=== PATIENT | male | born 1975 | race Caucasian/White ===

== ENCOUNTER 2024-03-02 10:20 | Emergency (ER) | payer OTHER, MEDICAID, SELFPAY ==
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
--- NOTE | ~2024-03-02 | XR_ITS ---
XR chest 1V portable Ordering provider: Jamel Lepe MD History: 48 years Male with . cough . Comparison: March 02, 2024 FINDINGS: MEDIASTINUM: The cardiac silhouette is not enlarged. LUNGS: No infiltrates, effusions or pneumothorax. OTHER: No free air under the diaphragm. Degenerative changes of the spine. IMPRESSION: No acute cardiopulmonary pathology. Reviewed, dictated and finalized at location A.
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
--- NOTE | ~2024-03-02 | XR_ITS ---
XR foot LT min 3V Ordering provider: Jamel Lepe MD History: . Diabetic foot . Comparison: None. FINDINGS: BONES: Status post amputation of the big toe. o fractures seen. Periosteal reaction is seen in the proximal phalanx of the second toe which may be due to previous in fection or trauma. Plantar subluxation of the navicular and medial cuneiform is not excluded. JOINT SPACES: Sclerotic changes seen in the navicular bone which may be inflammatory or osteoarthriti c. SOFT TISSUES: Postoperative changes seen medially Calcaneal spur. IMPRESSION: Status post amputation of the big toe. Plantar subluxation of the navicular and medial cuneiform bone. Sclerotic changes in the area of the talonavicular joint may be inflammatory or osteoarthritic change s. Reviewed, dictated and finalized at location A. IMPRESSION: Status post amputation of the big toe. Plantar subluxation of the navicular and medial cuneiform bone. Sclerotic changes in the area of the talonavicular joint may be inflammatory or osteoarthritic changes.
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
[2024-03-02 10:25] VITALS: BP 140/80; PULSE 93; RESP 14; TEMP 37; O2SAT 97
[2024-03-02 10:37] LABS: Glucose Point of Care > 500 mg/dl (65-105)
[2024-03-02 12:27] VITALS: BP 162/93; PULSE 74; RESP 16; O2SAT 95
[2024-03-02] MEDS: fentaNYL CITRATE INJ (*CRX) 100 MCG/2 ML VIAL 50 MCG IM (12:53)
[2024-03-02] MEDS: CYCLOBENZAPRINE HCL 10 MG TABLET PO (12:53)
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
[2024-03-02 13:12] LABS: Alveolar/Arterial O2 Gradient 33.7 mmHg; Base Excess ABG 2.2 mEq/l (+/-2.0); Fractional Inspired Oxygen 21 %; HCO3 ABG 27.7 mEq/l (22.0-26.0); Oxygen Content ABG 14.1 %vol (16.0-22.0); Oxygen Saturation ABG 90.4 % (95.0-100.0); PO2 ABG 59.7 mmHg (80.0-100.0); PO2 FiO2 Ratio Arterial Blood 2.84 %; Total Hemoglobin 11.7 g/dL (12.0-18.0); pH ABG 7.389 (7.350-7.450)
[2024-03-02 13:14] LABS: Modified Allen's Test Pass; Oxyhemoglobin 85.6 % THb (90.0-100.0); Site Drawn RIGHT BRACHIAL
[2024-03-02 13:47] VITALS: BP 138/87; PULSE 76; RESP 18; O2SAT 97
[2024-03-02] MEDS: SODIUM CHLORIDE 0.9% IV 1,000 ML 999 ML IV CONT ×2 (13:49→14:42)
[2024-03-02] MEDS: INSULIN HUMAN REGULAR (*BKC) 100 UNITS/ML 9 UNITS IV PUSH (13:50)
[2024-03-02 13:57] LABS: Basophils Absolute Auto 0.1 K/mm3 (0.0-0.1); Basophils Percent Auto 0.6 % (0.2-1.2); Eosinophils Absolute Auto 0.3 K/mm3 (0-0.3); Eosinophils Percent Auto 3.1 % (0-4.4); Hematocrit 32.8 % (42.0-52.0); Hemoglobin 10.8 g/dL (14.0-18.0); Immature Granulocyte Absolute 0.02 K/mm3 (0.00-0.031); Immature Granulocyte Percent A 0.2 % (0-0.5); Lymphocytes Absolute Auto 1.51 K/mm3 (0.9-3.2); Mean Corpuscular HGB Conc 32.9 g/dl (32-36); Mean Corpuscular Hemoglobin 26.9 pg (26-34); Mean Corpuscular Volume 81.6 fl (80-100); Mean Platelet Volume 10.4 fl (7.4-10.4); Monocytes Absolute Auto 0.7 K/mm3 (0.1-0.6); Monocytes Percent Auto 7.7 % (2.6-8.5); Neutrophils Absolute Auto 6.9 K/mm3 (1.3-6.7); Neutrophils Percent Auto 72.4 % (45.5-73.1); Platelet Count Result 329 k/mm3 (150-375); Red Blood Count 4.02 M/mm3 (4.6-6.20); Red Cell Distribution Width 15.3 % (11.5-14.5); White Blood Count 9.5 K/mm3 (4.5-10.0)
[2024-03-02 14:08] LABS: Alanine Aminotransferase 12 U/L (6-50); Albumin Level 3.8 g/dL (3.5-5.1); Alkaline Phosphatase 128 U/L (38-126); Anion Gap 6 mmol/L (4-12); Aspartate Amino Transferase 16 U/L (17-59); Bilirubin,Total 0.5 mg/dL (0.2-1.3); Blood Urea Nitrogen 11 mg/dL (9-20); Calcium 8.9 mg/dL (8.4-10.2); Carbon Dioxide 27 mmol/L (22-30); Chloride 98 mmol/L (98-107); Estimated CRCL calculation 99 ml/min; Estimated Glomerular Filt Rate > 60; Glucose 428 mg/dL (65-110); Sodium 131 mmol/L (137-145)
[2024-03-02 14:48] LABS: Appearance Urine Clear (Clear); Bilirubin Urine Negative (Negative); Blood Urine Negative (Negative); Color Urine Yellow (Yellow); Glucose Urine UA 3+ mg/dL (Negative); Ketones Urine Negative (Negative); Leukocyte Esterase Ur Negative LEU/UL (Negative); Nitrate Urine Negative (Negative); Protein Urine Negative (Negative); Urobilinogen Urine 0.2 mg/dL (<2.0)
[2024-03-02 14:54] LABS: Phosphorus 2.7 mg/dL (2.5-4.5)
[2024-03-02 14:55] LABS: Lactic Acid Reflex 1.7 mmol/L (0.7-2.0)
[2024-03-02 14:58] LABS: Add Urine Microscopic? NO; Specific Grav Ur 1.036 (1.001-1.035)
[2024-03-02 15:01] LABS: Beta-Hydroxybutyrate/Acetoacetate 0.15 mmol/L (0.02-0.27)
[2024-03-02 15:06] LABS: Glucose Point of Care 165 mg/dl (65-105)
[2024-03-02] MEDS: PIPERACILLN/TAZ 3.375GM/NS50ML 3.375 GM/50 ML BAG IVPB (15:26)
--- NOTE | 2024-03-02 17:01 | PC.NURSE ---
Pt tells me that his ride is on the way and that he needs to be ready to go when she gets here. I tell him that he is to be admitted to the hospital. Pt says he does not live in this state and he can't stay. I inform him that if the infection in his leg gets worse he could . He tells me that he will go to a hospital in [place]. Provider made aware. AMA paperwork filled out and patient is ambulatory on discharge in no acute distress. Pt A&Ox4.
== END 2024-03-02 17:04 | disposition left against medical advice (07) ==
PROVIDERS: Emergency Medicine; Emergency Provider Emergency Medicine
DX: E11.628 Type 2 diabetes mellitus with other skin complications (principal); L08.9 Local infection of the skin and subcutaneous tissue, unspecified; E11.65 Type 2 diabetes mellitus with hyperglycemia; T38.3X6A Underdosing of insulin and oral hypoglycemic [antidiabetic] drugs, initial encounter; R07.81 Pleurodynia; S19.9XXA Unspecified injury of neck, initial encounter; S09.90XA Unspecified injury of head, initial encounter; E11.42 Type 2 diabetes mellitus with diabetic polyneuropathy; Z89.412 Acquired absence of left great toe; Z79.899 Other long term (current) drug therapy; Z79.4 Long term (current) use of insulin; M47.812 Spondylosis without myelopathy or radiculopathy, cervical region; V43.62XA Car passenger injured in collision with other type car in traffic accident, initial encounter
CPT/HCPCS: 36415; 36600; 70450; 71045; 71046; 72125; 73630; 80053; 81003; 82010; 82805; 82948; 83605; 83735; 84100; 85025; 86140; 87040; 96361; 96365; 96372; 96375; 99284; A9270; J1815; J2543; J3010; J7030